=== PATIENT | male | born 1965 | race Caucasian/White ===

== ENCOUNTER 2017-11-28 23:17 | Emergency (ER) | payer OTHER ==
[~2017-11-28] VITALS: Ht 167.6 cm; Wt 100.3 kg
[~2017-11-28 23:17] MED LIST: AMOXICILLIN875 MG PO; IBUPROFEN800 MG PO; METFORMIN HCL500 MG PO; NAPROSYN500 MG PO; NO HOME MEDS; PREDNISONE20 MG PO; TAMIFLU75 MG PO; ULTRAM50 MG PO; VICODIN 5-3001 EACH PO; ZITHROMAX Z-PA250 MG PO
[2017-11-28 23:42] LABS: HEMATOCRIT 45.9 % (38.0-50.0); HEMOGLOBIN 15.9 G/DL (12.5-16.6); MCH 29.4 PG (29.0-34.0); MCHC 34.6 G/DL (30.0-36.0); RBC DIS.WIDTH-CV 13.7 % (11.8-14.6); RBC DIS.WIDTH-SD 42.5 % (39-53); WHITE BLOOD COUNT 11.8 K/uL (4.1-10.2)
[2017-11-28 23:50] LABS: CHLORIDE 105 mEq/L (99-109); POTASSIUM 4.7 mEq/L (3.7-5.4); SODIUM 143 mEq/L (136-147)
[2017-11-28 23:51] LABS: MAGNESIUM 2.8 mg/dL (1.3-2.7)
[2017-11-28 23:52] LABS: GLUCOSE 111 mg/dL (70-99)
[2017-11-28 23:56] LABS: CREATININE 1.3 mg/dL (0.6-1.3); GFR ESTIMATE (CALCULATED) > 59 mL/min/ (58.99-99999)
[2017-11-28 23:57] LABS: UREA NITROGEN (BUN) 9 mg/dL (9-23)
[2017-11-29 00:02] LABS: TROP-I INTERPRETATION NEGATIVE; TROPONIN-I < 0.01 ng/mL (0.0-0.30)
[2017-11-29 00:57] LABS: PLAT.SUFFICIENCY ADEQUATE; PLATELET COUNT 306 K/uL (156-360)
[2017-11-29 03:03] LABS: TROP-I INTERPRETATION NEGATIVE; TROPONIN-I 0.02 ng/mL (0.0-0.30)
[2017-11-29] MEDS ORDERED: PREDNISONE20 MG PO (03:23)
[2017-11-29] MEDS ORDERED: VENTOLIN HFA18 GM IH (03:23)
[2017-11-29 03:40] VITALS: BP 119/82
== END 2017-11-29 03:59 | disposition home or self-care (01) ==
LOC: EME 23:17
PROVIDERS: Emergency Medicine
DX: J44.1 Chronic obstructive pulmonary disease with (acute) exacerbation (principal); R00.0 Tachycardia, unspecified; E11.9 Type 2 diabetes mellitus without complications; F17.200 Nicotine dependence, unspecified, uncomplicated; Z79.84 Long term (current) use of oral hypoglycemic drugs
CPT/HCPCS: 71045; 80048; 83735; 84484; 85027; 93005; 94640; 94640 76; 99281; 99285; J2930; J3105

== ENCOUNTER 2017-12-10 14:52 | Emergency (ER) | payer OTHER ==
[~2017-12-10] VITALS: Ht 167.6 cm; Wt 106.8 kg
[~2017-12-10 14:52] MED LIST changes: +VENTOLIN HFA18 GM IH
[2017-12-10 15:36] LABS: HEMATOCRIT 45.4 % (38.0-50.0); HEMOGLOBIN 15.6 G/DL (12.5-16.6); MCH 29.1 PG (29.0-34.0); MCHC 34.4 G/DL (30.0-36.0); MCV 84.7 FL (86-99); PLATELET COUNT 248 K/uL (156-360); RBC DIS.WIDTH-CV 13.9 % (11.8-14.6); RBC DIS.WIDTH-SD 43.2 % (39-53); RED BLOOD COUNT 5.36 M/uL (4.00-5.50); WHITE BLOOD COUNT 11.8 K/uL (4.1-10.2)
[2017-12-10 15:49] LABS: CHLORIDE 105 mEq/L (99-109); POTASSIUM 4.1 mEq/L (3.7-5.4); SODIUM 140 mEq/L (136-147)
[2017-12-10 15:50] LABS: GLUCOSE 148 mg/dL (70-99)
[2017-12-10 15:54] LABS: CREATININE 1.2 mg/dL (0.6-1.3); GFR ESTIMATE (CALCULATED) > 59 mL/min/ (58.99-99999)
[2017-12-10 15:55] LABS: UREA NITROGEN (BUN) 7 mg/dL (9-23)
[2017-12-10] MEDS ORDERED: VENTOLIN HFA18 GM IH (16:49)
[2017-12-10] MEDS ORDERED: PREDNISONE20 MG PO (16:49)
[2017-12-10 17:38] LABS: TROP-I INTERPRETATION NEGATIVE; TROPONIN-I 0.02 ng/mL (0.0-0.30)
[2017-12-10 18:08] LABS: BASE EXCESS 1.6 mEq/L (-3 to +3); BICARBONATE 25.9 mEq/L (22-26); CARBOXY HGB 1.6 % (0-5); METHEMOGLOBIN 1.5 % (0-1.5); PCO2 39 mm Hg (35-45); PO2 55 mm Hg (80-100); pH 7.43 (7.35-7.45)
[2017-12-10 18:09] LABS: COMMENTS - BLOOD GASES A+C+; DEVICE RA; SITE LR; TOTAL RESP RATE 21 resp/min
[2017-12-10] MEDS ORDERED: ATROVENT H200 INHALA IH (19:47)
[2017-12-10] MEDS ORDERED: ARNUITY ELLIP100 MCG IH (19:47)
[2017-12-10 19:58] VITALS: BP 122/80
== END 2017-12-10 20:15 | disposition home or self-care (01) ==
LOC: EME 14:52
PROVIDERS: Emergency Medicine
DX: J44.1 Chronic obstructive pulmonary disease with (acute) exacerbation (principal); J45.901 Unspecified asthma with (acute) exacerbation; R09.02 Hypoxemia; E11.9 Type 2 diabetes mellitus without complications; Z79.84 Long term (current) use of oral hypoglycemic drugs; F17.200 Nicotine dependence, unspecified, uncomplicated
CPT/HCPCS: 36600; 71046; 80048; 82803; 83880; 84484; 85027; 93005; 94640; 99281; 99284; J7512